=== PATIENT | female | born 1990 | race Caucasian/White ===

== ENCOUNTER 2018-09-24 01:07 | Day surgery (SDC) | payer OTHER ==
[~2018-09-24] VITALS: Ht 152.4 cm; Wt 70.5 kg
[2018-09-24 04:58] LABS: BASO % 0.3 % (0.0-1.0); EOS # 0.2 10^3/uL (0.0-0.50); HEMATOCRIT 41.2 % (36.0-47.0); HEMOGLOBIN 13.9 g/dl (12.0-15.5); LYMPH # 1.8 10^3/uL (1.5-6.5); LYMPH % 29.5 % (24.0-44.0); MEAN CORPUSCULAR HGB CONC 33.7 g/dl (32.0-36.5); MEAN CORPUSCULAR VOLUME 97.9 fl (80.0-96.0); MONO # 0.5 10^3/uL (0.0-0.8); MONO % 8.4 % (0.0-5.0); NEUTROPHILS # 3.4 10^3/uL (1.8-7.7); NEUTROPHILS % 57.6 % (36.0-66.0); PLATELET COUNT, AUTOMATED 144 10^3/uL (150-450); RED BLOOD COUNT 4.21 10^6/uL (4.00-5.40); WHITE BLOOD COUNT 5.9 10^3/uL (4.0-10.0)
[2018-09-24] MEDS ORDERED: ONDANSETRON 4MG/2ML VIAL (J2405) IV ONE (05:00)
[2018-09-24] MEDS: MORPHINE 2 MG/ML 1ML VIAL (J2270) IV PRN ×2 (05:19→09:00)
[2018-09-24 05:25] LABS: BLOOD UREA NITROGEN 14 MG/DL (7-18); CARBON DIOXIDE LEVEL 24 MEQ/L (21-32); CHLORIDE LEVEL 109 MEQ/L (98-107); CREATININE FOR GFR 0.76 MG/DL (0.55-1.30); GLOMERULAR FILTRATION RATE > 60.0 (>60); GLUCOSE, FASTING 86 MG/DL (70-100); POTASSIUM SERUM 4.1 MEQ/L (3.5-5.1); SODIUM LEVEL 139 MEQ/L (136-145)
--- NOTE | 2018-09-24 07:42 | REPVR ---
EXAM: US Pelvis Complete, Transabdominal and US Pelvis EXAM DATE/TIME: 09/24/2018 6:08 AM CLINICAL HISTORY: 27 years old, female; Other: Cramping and bleeding 2 weeks after miscarriage dx; Additional info: Bleeding 2 weeks after miscarriage, eval for retained prods TECHNIQUE: Imaging protocol: Real-time transabdominal and transvaginal pelvic ultrasound (complete) with image documentation. Transvaginal imaging was used for better evaluation of the endometrium and adnexa. COMPARISON: No relevant prior studies available. FINDINGS: Uterus/cervix: Uterus measures 9.6 x 5.2 x 7.5 cm. Gestation: Dysmorphic intrauterine gestational sac with internal septation and echoes. No pole, consistent with the reported history of spontaneous . Right adnexa: Right ovary measures 2.3 x 1.7 x 1.6 cm. Multiple follicles, the largest measuring 12 mm. Right ovarian blood flow demonstrated. Left adnexa: Left ovary measures 3.2 x 1.7 x 1.4 cm. Multiple follicles. Left ovarian blood flow demonstrated. Free fluid: No significant free fluid. IMPRESSION: Dysmorphic intrauterine gestational sac with internal septation and echoes. No pole, consistent with the reported history of spontaneous . Electronically signed by: Everardo Amin On 09/24/2018 07:42:34 AM
[2018-09-24] MEDS ORDERED: propofoL 200 MG/20 ML VIAL As Ordered ONE (14:55)
[2018-09-24] MEDS ORDERED: LIDOCAINE 2% INJ 100 MG/5 ML SDV (FOR ANES.) As Ordered ONE (14:55)
[2018-09-24] MEDS ORDERED: fentaNYL 100 MCG/2 ML INJECTION (J3010) As Ordered ONE (14:55)
[2018-09-24] MEDS ORDERED: MIDAZOLAM INJ 2 MG/2 ML VIAL (J2250) As Ordered ONE (14:55)
[2018-09-24] MEDS ORDERED: LIDOCAINE 1% SDV INJ 30 ML VIAL As Ordered ONE (15:04)
[2018-09-24] MEDS ORDERED: dexameTHASONE 4 MG/ML 1ML VIAL (J1100) As Ordered ONE (15:20)
[2018-09-24 15:25] VITALS: BP 110/51
[2018-09-24] MEDS ORDERED: KETOROLAC 60 MG/2 ML VIAL (J1885) As Ordered ONE (15:34)
[2018-09-24] MEDS ORDERED: ONDANSETRON 4MG/2ML VIAL (J2405) As Ordered ONE (15:34)
[2018-09-24] MEDS ORDERED: METOCLOPRAMIDE INJ 10MG/2ML VIAL (J2765) As Ordered ONE (16:01)
[2018-09-24] MEDS ORDERED: PERCOCET 5MG/325MG TAB As Ordered ONE (16:09)
[2018-09-24] MEDS ORDERED: METOCLOPRAMIDE INJ 10MG/2ML VIAL (J2765) IV PRN (16:15)
[2018-09-24] MEDS ORDERED: LR 1,000 ML IV SCH (16:15)
[2018-09-24] MEDS ORDERED: PERCOCET 5MG/325MG TAB PO PRN ×2 (16:15→16:30)
[2018-09-24] MEDS ORDERED: fentaNYL 100 MCG/2 ML INJECTION (J3010) IV PRN (16:15)
[2018-09-24] MEDS ORDERED: ONDANSETRON 4MG/2ML VIAL (J2405) IV PRN (16:15)
[2018-09-24 16:55] VITALS: BP 112/77
[2018-09-24 17:25] VITALS: BP 110/51
[2018-09-24 17:55] VITALS: BP 98/64
[2018-09-24 18:25] VITALS: BP 103/55
[2018-09-24 19:25] VITALS: BP 119/60
[2018-09-24] MEDS ORDERED: KETOROLAC 30 MG/ML VIAL (J1885) IV SCH (22:00)
--- NOTE | 2018-09-25 08:00 | RO ---
DATE OF PROCEDURE: 09/24/2018 PREOPERATIVE DIAGNOSIS: Incomplete . POSTOPERATIVE DIAGNOSIS: Incomplete . PROCEDURE PERFORMED: Dilation with suction and sharp curettage. SURGEON: Charley Valentine MD DAIRY HUSBANDMAN: None. ANESTHESIA: General. ESTIMATED BLOOD LOSS: 5 mL. IV FLUIDS: 400 mL. URINE OUTPUT: Was not obtained. PREOPERATIVE ANTIBIOTICS: None. SPECIMENS: Uterine contents. INDICATIONS FOR OPERATION: This patient is a 27-year-old 4, para 3 who presented with a known missed AB. She was diagnosed September 11 and was following just expected management. She presented today to the emergency department with bleeding and pain. She was counseled and her options include expected management and medical management with misoprostol and dilation and curettage. After consultation the patient desired to proceed with dilation and curettage. She was provided with risks as well as reviewing all of her questions. DESCRIPTION OF OPERATION: After informed consent was obtained and written consent was reviewed, the patient brought to the operating room where she was placed under general anesthesia. She was then placed and of position was prepped and draped in normal sterile fashion. A time out operating room was then performed identifying the patient, procedure to be performed as well as drug allergies. A bivalve speculum then was then placed revealing the cervix. The cervix was then sequentially dilated using Hanks dilators. A #8 curved uterine curette was then advanced through the cervical os to the level of the fundus. It was attached to suction, suction was deployed and the uterus curetted in a 360 degree fashion with moderate amounts of tissue obtained. This was done on a total of three passes. A sharp curette was then advanced through the cervical os to the level of the uterus and the uterus was once again curetted in a 360 degree fashion. All specimens were then collected and sent to pathology. Single-tooth tenaculum was then removed. Tenaculum sites were noted to be hemostatic. The patient was then taken out of lithotomy position, was awakened from general anesthesia and taken to recovery in stable condition. Counts correct.
== END 2018-09-24 20:00 | disposition home or self-care (01) ==
LOC: M ED 01:07 → M SDC 09:15 → M PED 17:19 → M SDC 20:00
PROVIDERS: ATTEND Obstetrics & Gynecology
DX: O02.1 Missed abortion (principal); Z88.0 Allergy status to penicillin; Z88.5 Allergy status to narcotic agent; Z72.0 Tobacco use
CPT/HCPCS: 59820; 76830; 76856; 80048; 84702; 85025; 88305; 96374; 96375; 99284; J1100; J1885; J2250; J2270; J2405; J2765; J3010